=== PATIENT | female | born 1955 | race Caucasian/White ===

== ENCOUNTER → 2018-12-15 | Outpatient (CLI) | payer OTHER ==
--- NOTE | 2018-12-15 09:27 | BD ---
EXAMINATION TYPE: Axial Bone Density DATE OF EXAM: 12/15/2018 COMPARISON: 07.16.2014 CLINICAL HISTORY: M [age] Nuclear Medicine Study in the last 2 weeks: Barium Study in the last week: : Height: Weight: FRAX RISK QUESTIONS: Alcohol (3 or more units per day): no Family History (Parent hip fracture): no Glucocorticoids (More than 3mos): no (Ex: prednisone, prednisolone, methylprednisolone, dexamethasone, and hydrocortisone). History of Fracture in Adulthood: yes Secondary Osteoporosis: 1. Type 1 Diabetes: no 2. Hyperthyroidism: no 3. Menopause before 45: no 4. Malnutrition: no 5. Chronic liver disease: no Rheumatoid Arthritis: no Current Tobacco Use: no RISK FACTORS HISTORY OF: Active: yes Diet low in dairy products/other sources of calcium: yes Postmenopausal woman: 2004 MEDICATIONS: none Additional History: EXAM MEASUREMENTS: Bone mineral densitometry was performed using the [employer] System. Bone mineral density as measured about the Lumbar spine is: ----- L1-L4(G/cm2): 0.809 T Score Values are as follows: ----- L2: -3.5 ----- L3: -3.0 ----- L4: -3.6 ----- L1-L4: -3.1 Bone mineral density has: decreased -4.0 % since study of: 07.16.2014 Bone mineral density about the R hip (g/cm2): 0.857 Bone mineral density about the L hip (g/cm2): 0.825 T Score values are as follows: -----R Neck: -1.3 -----L Neck: -1.5 -----R Total: -1.5 -----L Total: -1.8 Bone mineral density has: decreased -8.5 % since study of: 07.16.2014 IMPRESSION: Osteoporosis (T Score less than -2.5) with respect to the lumbar spine. There is increased fracture risk and therapy is usually indicated based on age. Re-Screen 1-2 years. NOTE: T-SCORE=SD OF THE YOUNG ADULT MEAN.
== END ==
LOC: RADBDWWP 08:33
PROVIDERS: ATTEND Family Medicine
DX: M81.0 Age-related osteoporosis without current pathological fracture (principal)
CPT/HCPCS: 77080

== ENCOUNTER → 2019-12-26 | Outpatient (CLI) | payer OTHER ==
--- NOTE | 2019-12-27 11:58 | MM ---
Reason for exam: screening (asymptomatic). Last mammogram was performed 1 year and 6 months ago. History: Patient is postmenopausal and is nulliparous. MG discontinued stereo core LT of the left breast, February 10, 2015. Physical Findings: A clinical breast exam by your physician is recommended on an annual basis and results should be correlated with mammographic findings. MG Screening Mammo w CAD Bilateral CC and MLO view(s) were taken. Prior study comparison: June 29, 2018, bilateral MG screening mammo w CAD. March 18, 2017, bilateral MG screening mammo w CAD. Finding: There are typically benign round, grouped/clustered calcifications in the left breast. There is no discrete abnormality. ASSESSMENT: Benign, BI-RAD 2 RECOMMENDATION: Routine screening mammogram of both breasts in 1 year.
== END | disposition home or self-care (01) ==
LOC: RADMAMWWP 09:58
PROVIDERS: ATTEND Obstetrics & Gynecology
DX: Z12.31 Encounter for screening mammogram for malignant neoplasm of breast (principal)
CPT/HCPCS: 77067

== ENCOUNTER → 2020-05-12 | Outpatient (CLI) | payer OTHER ==
--- NOTE | 2020-05-12 11:47 | XR ---
EXAMINATION TYPE: XR ribs RT DATE OF EXAM: 05/12/2020 CLINICAL HISTORY: Pain, Fall Four views of the ribs fail demonstrate evidence for displaced rib fracture or secondary sign of rib fracture. Visualized lungs are clear. No evidence for pneumothorax. There is elevation of the right humeral head compatible with chronic rotator cuff tear. IMPRESSION: 1. No displaced rib fractures seen. ICD 10 NO FRACTURE, INITIAL EVALUATION
== END | disposition home or self-care (01) ==
LOC: RADXRMAIN 10:58
PROVIDERS: ATTEND Family Medicine
DX: M89.8X8 Other specified disorders of bone, other site (principal)

== ENCOUNTER → 2021-01-22 | Outpatient (CLI) | payer MEDICARE, OTHER ==
--- NOTE | 2021-01-22 11:37 | XR ---
EXAMINATION TYPE: XR pelvis AP view DATE OF EXAM: 01/22/2021 CLINICAL HISTORY: pain TECHNIQUE: Single view the pelvis is submitted. FINDINGS: No evidence for fracture, dislocation or bony lesion. Joint spaces are well-preserved. S I joints appear symmetric. IMPRESSION: 1. No acute fracture or dislocation seen. ICD 10 NO FRACTURE, INITIAL EVALUATION
== END | disposition home or self-care (01) ==
LOC: RADXRMAIN 10:27
PROVIDERS: ATTEND Family Medicine
DX: M46.1 Sacroiliitis, not elsewhere classified (principal); M81.0 Age-related osteoporosis without current pathological fracture
CPT/HCPCS: 72170

== ENCOUNTER → 2021-03-05 | Outpatient (CLI) | payer MEDICARE, OTHER ==
--- NOTE | 2021-03-05 14:09 | BD ---
EXAMINATION TYPE: Axial Bone Density DATE OF EXAM: 03/05/2021 COMPARISON: 12.15.2018 CLINICAL HISTORY: 65 YR OLD FEMALE......ICD-10 CODE: M81.0 OSTEOPOROSIS Height: 65 Weight: 142 FRAX RISK QUESTIONS: Family History (Parent hip fracture): YES HX OF FX AN ADULT RISK FACTORS HISTORY OF: HX OF RT HAND AND WRIST FX, RIBS BROKEN AN ADULT History of Wrist Fracture: RT, AN ADULT Family History of Osteoporosis: YES, MOTHER AND GRANDMOTHER, HIP FX Postmenopausal woman: YES, AT AGE, 49 YRS OLD Hyperparathyroidism: NO Adrenal Insufficiency: NO MEDICATIONS: Additional Medications: VIT D AND CALCIUM, AND EAT PROPERLY Additional History: NOTHING TO NOTE HERE EXAM MEASUREMENTS: Bone mineral densitometry was performed using the [employer] System. Bone mineral density as measured about the Lumbar spine is: ----- L1-L4(G/cm2): 0.750 T Score Values are as follows: ----- L1: -3.3 ----- L2: -3.4 ----- L3: -4.0 ----- L4: -3.7 ----- L1-L4: -3.6 Bone mineral density has: Decreased -5.5% since study of: 12.15.2018 Bone mineral density about the L hip (g/cm2): 0.778 T Score values are as follows: -----L Neck: -1.7 -----L Total: -1.8 Bone mineral density has: Decreased -0.3% since study of: 12.15.2018 FRAX%s: THERE IS A 27.7% CHANCE FOR A MAJOR OSTEOPOROTIC FX AND A 2.2% FOR HIPS.....PROBABILITY F OR FX IN 10 YRS TIME IMPRESSION: Osteoporosis NOTE: T-SCORE=SD OF THE YOUNG ADULT MEAN.
== END | disposition home or self-care (01) ==
LOC: RADBDWWP 08:30
PROVIDERS: ATTEND Family Medicine
DX: M81.0 Age-related osteoporosis without current pathological fracture (principal)
CPT/HCPCS: 77080

== ENCOUNTER → 2022-02-24 | Outpatient (CLI) | payer MEDICARE, OTHER ==
--- NOTE | 2022-02-24 16:09 | MM ---
Reason for Exam: Screening (asymptomatic). Last mammogram was performed 2 year(s) and 2 month(s) ago. Patient History: Menarche at age 10. Patient has no children. Postmenopausal. 02/10/2015, MG discontinued stereo core LT on the left side. Risk Values: Sonya 5 year model risk: 2.0%. NCI Lifetime model risk: 7.3%. Prior Study Comparison: 01/08/2015 Bilateral Screening Mammogram, [facility]. 02/03/2015 Left Diagnostic Mammogram, [facility] 12/22/2015 Bilateral Diagnostic Mammogram, [facility] 03/18/2017 Bilateral Screening Mammogram, [facility] 06/29/2018 Bilateral Screening Mammogram, [facility]. 12/26/2019 Bilateral Screening Mammogram, [facility]. Tissue Density: The breast tissue is heterogeneously dense. This may lower the sensitivity of mammography. Findings: Analyzed By CAD. There is no suspicious group of microcalcifications or new suspicious mass in either breast. Overall Assessment: Negative, BI-RAD 1 Management: Screening Mammogram of both breasts in 1 year. A clinical breast exam by your physician is recommended on an annual basis and results should be correlated with mammographic findings. [facility] will attempt to contact patient to return for supplemental views and ultrasound if indicated. Electronically signed and approved by: Yakov Hall DO
== END | disposition home or self-care (01) ==
LOC: RADMAMWWP 09:36
PROVIDERS: ATTEND Obstetrics & Gynecology
DX: Z12.31 Encounter for screening mammogram for malignant neoplasm of breast (principal); Z78.0 Asymptomatic menopausal state
CPT/HCPCS: 77063; 77067

== ENCOUNTER → 2023-04-14 | Outpatient (CLI) | payer MEDICARE, OTHER ==
--- NOTE | 2023-04-16 14:40 | BD ---
EXAMINATION TYPE: Axial Bone Density DATE OF EXAM: 04/14/2023 CLINICAL HISTORY: 67 years old Female. ICD-10 CODE: Z78.0 SCREENING Height: 5 ft 5 in Weight: 141 FRAX RISK QUESTIONS: Alcohol (3 or more units per day): no Family History (Parent hip fracture): no Glucocorticoids (More than 3mos): no (Ex: prednisone, prednisolone, methylprednisolone, dexamethasone, and hydrocortisone). History of Fracture in Adulthood: yes Secondary Osteoporosis: 1. Type 1 Diabetes: no 2. Hyperthyroidism: no 3. Menopause before 45: no 4. Malnutrition: no 5. Chronic liver disease: no Rheumatoid Arthritis: no Current Tobacco Use: no RISK FACTORS HISTORY OF: Surgery to Spine/Hip(right/left)/Wrist (right/left): no Family History of Osteoporosis: yes Active: yes Diet low in dairy products/other sources of calcium: no Postmenopausal woman: yes Take estrogen and/or progesterone medications: no Lost more than 2 inches in height since high school: no Frequent falls: no Poor Health: good Hyperparathyroidism: no Adrenal Insufficiency: no MEDICATIONS: Additional Medications: none Additional History: EXAM MEASUREMENTS: Bone mineral densitometry was performed using the [employer] System. Bone mineral density as measured about the Lumbar spine is: ----- L1-L4(G/cm2): 0.723 T Score Values are as follows: ----- L1: -3.5 ----- L2: -3.7 ----- L3: -4.3 ----- L4: -3.8 ----- L1-L4: -3.8 Z Score Values are as follows: ----- L1: -1.8 ----- L2: -2.0 ----- L3: -2.6 ----- L4: -2.2 ----- L1-L4: -2.1 Bone mineral density has: decreased -3.6 % since study of: 2020 Bone mineral density about the R hip (g/cm2): 0.861 Bone mineral density about the L hip (g/cm2): 0.812 T Score values are as follows: -----R Neck: -1.3 -----L Neck: -1.6 -----R Total: -1.6 -----L Total: -1.8 Z Score values are as follows: -----R Neck: 0.3 -----L Neck: 0.0 -----R Total: -0.3 -----L Total: -0.4 Bone mineral density has: decreased -0.4 % since study of: 2019 FRAX%s: The graph provided illustrates a 25.8 % chance for a major osteoporotic fx and a 3.2 % chance for the hips probability for fx in 10 years time. IMPRESSION: Osteopenia (T Score between -2.5 and -1). There is slightly increased risk of fracture and the patient may be considered for treatment. Re-Screen 2-5 years. NOTE: T-SCORE=SD OF THE YOUNG ADULT MEAN.
--- NOTE | 2023-04-16 16:24 | MM ---
Reason for Exam: Screening (asymptomatic). Last mammogram was performed 1 year(s) and 2 month(s) ago. Patient History: Menarche at age 10. Patient has no children. Postmenopausal. 02/10/2015, MG discontinued stereo core LT on the left side. Risk Values: Sonya 5 year model risk: 2.1%. NCI Lifetime model risk: 7.0%. Prior Study Comparison: 12/22/2015 Bilateral Diagnostic Mammogram, [facility]. 03/18/2017 Bilateral Screening Mammogram, [facility]. 06/29/2018 Bilateral Screening Mammogram, [facility]. 12/26/2019 Bilateral Screening Mammogram, [facility]. 02/24/2022 Bilateral MG 3D screening mammo w/cad, [facility]. Tissue Density: The breast tissue is heterogeneously dense. This may lower the sensitivity of mammography. Findings: Analyzed By CAD. The pattern is symmetrical and stable. Stable grouped and round calcifications are present bilaterally. Significant interval change is evident. No suspicious groups of microcalcifications, spiculated or lobular masses, architectural distortion or other secondary signs of malignancy are mammographically apparent. Overall Assessment: Benign, BI-RAD 2 Management: Screening Mammogram of both breasts in 1 year. A negative mammogram report should not preclude additional follow up of suspicious palpable abnormalities. Patient should continue monthly self breast exam. A clinical breast exam by your physician is recommended on an annual basis and results should be correlated with mammographic findings. Electronically signed and approved by: Tyree Montoya D.O. Radiologis
== END | disposition home or self-care (01) ==
LOC: RADMAMWWP 10:59
PROVIDERS: ATTEND Obstetrics & Gynecology
DX: Z12.31 Encounter for screening mammogram for malignant neoplasm of breast (principal); M81.0 Age-related osteoporosis without current pathological fracture; M85.89 Other specified disorders of bone density and structure, multiple sites; Z78.0 Asymptomatic menopausal state
CPT/HCPCS: 77063; 77067; 77080

== ENCOUNTER → 2024-04-25 | Outpatient (CLI) | payer MEDICARE, OTHER ==
--- NOTE | 2024-04-25 09:47 | MM ---
Reason for Exam: Screening (asymptomatic). Last screening mammogram was performed 12 month(s) ago. Patient History: Menarche at age 10. Patient has no children. Postmenopausal. 02/10/2015, MG discontinued stereo core LT on the left side. Risk Values: Sonya 5 year model risk: 2.1%. NCI Lifetime model risk: 6.7%. Prior Study Comparison: 12/26/2019 Bilateral Screening Mammogram, [facility]. 02/24/2022 Bilateral MG 3D screening mammo w/cad, [facility]. 04/14/2023 Bilateral MG 3D screening mammo w/cad, [facility]. Tissue Density: The breasts are heterogeneously dense, which may obscure small masses. Findings: Analyzed By CAD. Unchanged bilateral areas of asymmetric density. Benign oil cyst calcification medial left breast. Small grouped calcifications lateral left breast unchanged. There is no suspicious group of microcalcifications or new suspicious mass in either breast. Overall Assessment: Benign, BI-RAD 2 Management: Screening Mammogram of both breasts in 1 year. Patient should continue monthly self-breast exams. A clinical breast exam by your physician is recommended on an annual basis. This exam should not preclude additional follow-up of suspicious palpable abnormalities. Note on Sonya scores and lifetime risk: 1. A Sonya score greater than 3% is considered moderate risk. If this is the case, consider specialist referral to assess eligibility for a risk reducing agent. 2. If overall lifetime risk for the development of breast cancer is 20% or higher, the patient may qualify for future screening with alternating mammogram and breast MRI. [facility], , 04/25/2024 9:44 AM. Electronically signed and approved by: Analia Saenz M.D. Radiologist
== END | disposition home or self-care (01) ==
LOC: RADMAMWWP 08:30
PROVIDERS: ATTEND Obstetrics & Gynecology
DX: Z12.31 Encounter for screening mammogram for malignant neoplasm of breast (principal); Z78.0 Asymptomatic menopausal state; R92.333 Mammographic heterogeneous density, bilateral breasts
CPT/HCPCS: 77063; 77067